=== PATIENT | female | born 1965 | race Caucasian/White ===

== ENCOUNTER 2018-08-23 11:52 | Outpatient (CLI) | payer BC ==
[2018-08-23 13:27] LABS: eGFR (Non-African) > 60
== END 2018-08-23 11:53 ==
LOC: LAB 11:52
PROVIDERS: ATTEND Physician Assistant
DX: Z13.6 Encounter for screening for cardiovascular disorders (principal)
CPT/HCPCS: 80053; 80061

== ENCOUNTER 2018-08-23 16:24 | Outpatient (CLI) | payer BC | END 2018-08-23 16:25 | LOC: LABRHC 16:24 | PROVIDERS: ATTEND Physician Assistant | DX: Z12.4 Encounter for screening for malignant neoplasm of cervix (principal) | CPT/HCPCS: 88148; G0143 ==